=== PATIENT | female | born 1995 | race Caucasian/White ===

== ENCOUNTER → 2024-12-06 13:24 | Outpatient (REF) | payer OTHER, SELFPAY | LOC: PNTC 13:24 | PROVIDERS: ATTENDING PHYSICIAN Student in an Organized Health Care Education/Training Program | DX: Z36.89 Encounter for other specified antenatal screening (principal); Z36.1 Encounter for antenatal screening for raised alphafetoprotein level | CPT/HCPCS: 76811 ==

== ENCOUNTER → 2025-02-28 09:54 | Outpatient (REF) | payer OTHER, SELFPAY | LOC: PNTC 09:54 | PROVIDERS: ATTENDING PHYSICIAN Obstetrics & Gynecology | DX: O28.1 Abnormal biochemical finding on antenatal screening of mother (principal) | CPT/HCPCS: 76816 ==

== ENCOUNTER → 2025-04-28 09:24 | Outpatient (REF) | payer OTHER, SELFPAY | LOC: PNTC 09:24 | PROVIDERS: ATTENDING PHYSICIAN Student in an Organized Health Care Education/Training Program | DX: O48.1 Prolonged pregnancy (principal); O09.529 Supervision of elderly multigravida, unspecified trimester | CPT/HCPCS: 59025; 76815 ==

== ENCOUNTER 2025-05-02 19:26 | Inpatient (IN) | payer OTHER, SELFPAY ==
[2025-05-02 19:53] VITALS: BP 114/75; BMI 26.8
[2025-05-02 20:25] LABS: Hematocrit 36.1 % (37.0-47.0); Hemoglobin 12.8 g/dL (12.0-16.0); Mean Corp Hgb Conc. 35.5 g/dL (33.0-37.0); Mean Corpuscular Volume 95.0 fL (81.0-99.0); Nucleated Red Blood Cells % 0 %; Platelet Count 147 10^3/uL (130-400); Red Cell Dist. Width 11.9 % (11.5-14.5)
[2025-05-02] MEDS: CYTOTEC 25 MICROGRAM VAG (20:25)
[2025-05-03] MEDS: CYTOTEC 50 MICROGRAM PO (00:19)
[2025-05-03] MEDS: CYTOTEC PO ×5 (04:00→21:56)
[2025-05-03] MEDS: LR 1000 IV ×3 (07:05→14:45)
[2025-05-03] MEDS: SUBLIMAZE 100 MCG EPIDURAL (08:59)
[2025-05-03] MEDS: FENTANYL/BUPIVACAINE 100 EPIDURAL ×2 (08:59→16:50)
[2025-05-03] MEDS: TYLENOL 1000 MG PO (20:11)
[2025-05-03 20:55] LABS: Cord ABG Comment CORD BLOOD
[2025-05-03 20:58] LABS: B.E. Cord ABG -9.0 mMOL/L; HCO3 Cord ABG 23.5 mmol/L; O2 Saturation % Cord ABG 6.8 %; PCO2 Cord ABG 81 mmHg; PO2 Cord ABG < 6 mmHg; pH Cord ABG 7.07
[2025-05-03 21:03] LABS: B.E. Cord ABG -9.2 mMOL/L; HCO3 Cord ABG 23.2 mmol/L; O2 Saturation % Cord ABG 6.7 %; PCO2 Cord ABG 80 mmHg; PO2 Cord ABG 7 mmHg; pH Cord ABG 7.07
[2025-05-04] MEDS: TORADOL 15 MG IV ×3 (02:44→14:47)
[2025-05-04 04:47] LABS: Hematocrit 35.7 % (37.0-47.0); Hemoglobin 12.6 g/dL (12.0-16.0); Mean Corp Hgb Conc. 35.3 g/dL (33.0-37.0); Mean Corpuscular Volume 96.7 fL (81.0-99.0); Platelet Count 140 10^3/uL (130-400); Red Cell Dist. Width 11.7 % (11.5-14.5)
[2025-05-04] MEDS: PRENATAL PLUS 1 TABLET PO (08:50)
[2025-05-04] MEDS: COLACE 100 MG PO ×2 (08:50→20:55)
--- NOTE | 2025-05-04 10:20 | W.PN.ANS.POP ---
Anesthesia Post Operative
- Anesthesia Post Op Note
Vital Signs Stable-See Nursing Note: Yes
Airway Patent: Yes
Adequate Pain Control: Yes
Change in Mental Status: No
Current Postoperative Nausea & Vomiting: No
Anesthesia Complications: No
General Anesthetic Recall: No
Unplanned Admission: No
Post Op Hydration Adequate: Yes
[2025-05-04] MEDS: MYLICON 80 MG PO (15:14)
[2025-05-04] MEDS: TORADOL IV ×2 (20:54→21:16)
[2025-05-04] MEDS: MOTRIN 600 MG PO (21:13)
[2025-05-04] MEDS: TYLENOL 650 MG PO (21:14)
[2025-05-05] MEDS: MOTRIN 600 MG PO ×4 (03:13→21:57)
[2025-05-05] MEDS: TYLENOL 650 MG PO ×4 (03:13→21:57)
[2025-05-05] MEDS: MYLICON 80 MG PO (03:24)
[2025-05-05] MEDS: COLACE 100 MG PO ×2 (09:04→20:12)
[2025-05-05] MEDS: PRENATAL PLUS 1 TABLET PO (09:04)
[2025-05-06] MEDS: MOTRIN 600 MG PO ×2 (04:00→10:15)
[2025-05-06] MEDS: TYLENOL 650 MG PO ×2 (04:01→10:15)
[2025-05-06] MEDS: TYLENOL PO (08:28)
[2025-05-06] MEDS: MYLICON 80 MG PO (08:28)
[2025-05-06] MEDS: PRENATAL PLUS 1 TABLET PO (08:28)
[2025-05-06] MEDS: COLACE 100 MG PO (08:28)
[2025-05-06 11:17] LABS: Syphilis/T. pallidum Ab Reflex Negative (Negative)
--- NOTE | 2025-05-07 05:28 | W.DS.TRANS ---
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
-
Discharge Instructions:
Discharge Diagnosis/Procedures delivered via
Diet No restrictions
Activity No strenuous activity
Driving Restrictions No driving for 2 weeks
Bathing Restrictions OK to Shower
Instructions:
Stand-Alone Forms: [facility] Delivery
Changes to Home Medications: No
Discharge Medications:
DC Medications w/original date entered in [facility]
prenat.vits,tamia,opu-mquv-wtaeg 1 tab PO DAILY Supplement 05/02/25
acetaminophen 325 mg tablet 650 mg (2 x 325 mg) PO Q4HPRN PRN mild pain #1 tab 05/06/25
ibuprofen 600 mg tablet 600 mg PO Q6HPRN PRN cramps #60 tabs 05/06/25
Home Medication Changes
Pending Results: No
--- NOTE | 2025-05-07 05:30 | W.DCSUMMARY ---
Discharge Summary
Discharge Data
Date of Admission: 05/02/25
Date of Discharge: 05/06/25
-
Pending Results: No
Hospital Course
Patient is a 29yo who presented to Labor and Delivery on 05/02 at 41.3 weeks for induction of labor for late term. She was 2/50/-3 on exam and was given 25mcg of Cytotec placed PV. She received one dose of Cytotec 50mcg PO. At 0840, she was
complaining of contractions and was 3+/90/-2. She was requesting an epidural. There was a deceleration at 1215. She was 4/90/-2 and she was ruptured for clear fluid. She continued to have a category 1 tracing with periods of a category 2 tracing
with late decelerations. At 1510, she was 6cm. Amnioinfusion was started. She progressed to 7cm. At 2008, she had a temp of 99.3 and tracing was category 2 with late decelerations and tachycardia. She was 9cm. It was recommended to proceed
with primary section for nonreassuring heart tones and impending chorio. She underwent primary low transverse section delivering a viable male infant. The procedure was uncomplicated. The estimated blood loss was 595mL. On
postop day one, she was doing well with no complaints. Her hemoglobin was 12.6. On postop day two, she was doing well. On postop day three, she was meeting all milestones. She was tolerating a regular diet, voiding spontaneously, passing
flatus and ambulating. She was discharged home. Discharge instructions and return precautions were reviewed prior to discharge. She was instructed to follow up in 2 weeks for an incision check.
Discharge Plan
-
Patient Disposition: Home (Routine Discharge)
Discharge Diagnosis/Procedures: delivered via
Condition: Good
Diet: No restrictions
Activity: No strenuous activity
Driving Restrictions: No driving for 2 weeks
Bathing Restrictions: OK to Shower
Stand Alone Forms: [facility] Delivery
Referrals:
Diana Ballard, DO [Active, Gynecology] - in two weeks
UNKNOWN - PT NOT,INTERVIEWE [Family Provider]
Prescriptions:
New
acetaminophen 325 mg Tablet
650 mg PO Q4HPRN PRN (Reason: mild pain) Qty: 1 0RF
ibuprofen 600 mg Tablet
600 mg PO Q6HPRN PRN (Reason: cramps) Qty: 60 0RF
Continued
prenat.vits,tamia,mbf-zdnq-qpifg Tablet
1 tab PO DAILY
Discharge Orders:
Discharge Patient (As Directed); Ordered 05/06/25
Ordered By: Diana Ballard
Discharge Date and Time
Discharge Date/Time: 05/06/25 12:48
Print Language: [place]
== END 2025-05-06 12:48 | disposition home or self-care (01) | DRG 788 ==
LOC: LDRP 19:26
PROVIDERS: Obstetrics & Gynecology; ADMITTING PHYSICIAN Student in an Organized Health Care Education/Training Program
PROC: 3E0P7VZ Introduction of Hormone into Female Reproductive, Via Natural or Artificial Opening (ICD-10-PCS; 2025-05-02)
PROC: 6A550ZT Pheresis of Cord Blood Stem Cells, Single (ICD-10-PCS; 2025-05-03)
PROC: 10907ZC Drainage of Amniotic Fluid, Therapeutic from Products of Conception, Via Natural or Artificial Opening (ICD-10-PCS; 2025-05-03)
PROC: 10H07YZ Insertion of Other Device into Products of Conception, Via Natural or Artificial Opening (ICD-10-PCS; 2025-05-03)
PROC: 10D00Z1 Extraction of Products of Conception, Low, Open Approach (ICD-10-PCS; 2025-05-03)
PROC: 3E0E77Z Introduction of Electrolytic and Water Balance Substance into Products of Conception, Via Natural or Artificial Opening (ICD-10-PCS; 2025-05-03)
DX: O48.0 Post-term pregnancy (principal); Z3A.41 41 weeks gestation of pregnancy; Z37.0 Single live birth; O69.81X0 Labor and delivery complicated by cord around neck, without compression, not applicable or unspecified; O76 Abnormality in fetal heart rate and rhythm complicating labor and delivery; R31.0 Gross hematuria
CPT/HCPCS: 82803; 85025; 85027; 86780; 86850; 86900; 86901; 88307